=== PATIENT | female | born 1965 | race Caucasian/White ===

== ENCOUNTER 2020-04-20 12:00 | Emergency (ER) | payer OTHER ==
[2020-04-20 12:07] VITALS: BP 138/78; PULSE 55
[2020-04-20] MEDS ORDERED: Ketorolac 30 MG/ML SDV IVPUSH ONE (12:43)
--- NOTE | 2020-04-20 12:47 | EDM.PDOC ---
ED HPI GENERAL MEDICAL PROBLEM - General Chief Complaint: Flank Pain Stated Complaint: [facility]IA [facility] Time Seen by Provider: 04/20/20 12:30 Source of Information: Reports: Patient, EMS History Limitations: Reports: No Limitations - History of Present Illness INITIAL COMMENTS - FREE TEXT/NARRATIVE: 54-year-old female, generally healthy who had been feeling fine but 4 hours ago she developed some loose stools and then some intense pain in the left lower quadrant and left flank. It is been persistent for the past couple hours so she called an ambulance, pain was "10 out of 10". No fevers or chills, she also developed nausea and vomiting. In route she got 150 mcg of fentanyl which helped but she is still having persistent left flank pain. She has survived breast cancer, and has had several C-sections. She has had a hysterectomy and bilateral oophorectomy due to the metastatic breast cancer. She is not currently on chemotherapy. No fevers or chills. Onset: Sudden Duration: Hour(s): (4 hours ago) Location: Reports: Other (Left flank and left lower abdomen) Associated Symptoms: Reports: Nausea/Vomiting - Related Data Allergies Allergy/AdvReac Type Severity Reaction Status Date / Time No Known Allergies Allergy Verified 04/20/20 12:18 Home Meds: Home Meds Aspirin [Halfprin] 81 mg PO DAILY 05/21/15 [History] Levothyroxine Sodium [Synthroid] 88 mcg PO DAILY 05/21/15 [History] Zolpidem [Ambien] 5 mg pe PO ASDIRECTED PRN 05/21/15 [History] atorvaSTATin [Lipitor] 10 mg PO BEDTIME 05/21/15 [History] metFORMIN HCl [Metformin HCl] 1,000 mg PO DAILY 05/21/15 [History] Past Medical History HEENT History: Reports: Impaired Vision Cardiovascular History: Reports: High Cholesterol Respiratory History: Reports: Sleep Apnea Other Respiratory History: cpap Gastrointestinal History: Reports: None Genitourinary History: Reports: None [employer] History: Reports: Psychiatric History: Reports: Anxiety Endocrine/Metabolic History: Reports: Diabetes, Type II, Hypothyroidism Oncologic (Cancer) History: Reports: Breast - Past Surgical History Head Surgeries/Procedures: Reports: None HEENT Surgical History: Reports: None Cardiovascular Surgical History: Reports: None Respiratory Surgical History: Reports: None GI Surgical History: Reports: Cholecystectomy Female Surgical History: Reports: Section, Hysterectomy, Mastectomy Other Female Surgeries/Procedures: bilat mastectomy reconstuction surgery Endocrine Surgical History: Reports: None Neurological Surgical History: Reports: None Oncologic Surgical History: Reports: Mastectomy Dermatological Surgical History: Reports: None Social & Family History - Tobacco Use Smoking Status *Q: Never Smoker Second Hand Smoke Exposure: No - Caffeine Use Caffeine Use: Reports: Tea - Recreational Drug Use Recreational Drug Use: No ED ROS GENERAL - Review of Systems Review Of Systems: See Below Constitutional: Denies: Fever, Chills Respiratory: Denies: Shortness of Breath Cardiovascular: Denies: Chest Pain GI/Abdominal: Reports: Abdominal Pain, Nausea, Vomiting : Reports: Flank Pain (Left side). Denies: Dysuria, Frequency, Urgency Musculoskeletal: Reports: Back Pain Skin: Reports: Pallor, Diaphoresis Neurological: Denies: Confusion, Dizziness, Headache, Paresthesia Psychiatric: Reports: No Symptoms ED EXAM, GENERAL - Physical Exam Exam: See Below Exam Limited By: No Limitations General Appearance: Alert, Anxious, Mild Distress, Other (Still looks fairly uncomfortable) Eye Exam: Bilateral Eye: Normal Inspection Respiratory/Chest: No Respiratory Distress, Lungs Clear Cardiovascular: Regular Rate, Rhythm GI/Abdominal: Normal Bowel Sounds, Soft, Non-Tender Extremities: Normal Inspection. No: Pedal Edema Neurological: Alert, Oriented Psychiatric: Anxious Skin Exam: Warm, Diaphoretic (Diffuse mild diaphoresis) Course - Vital Signs Last Recorded V/S: Last Vital Signs Temp 97.3 F 04/20/20 12:24 Pulse 55 L 04/20/20 12:24 Resp 16 04/20/20 12:24 BP 138/78 04/20/20 12:24 Pulse Ox 99 04/20/20 12:24 - Orders/Labs/Meds Meds: Medications Discontinued Medications Generic Name Dose Route Start Last Admin Trade Name Freq PRN Reason Stop Dose Admin Ketorolac Tromethamine 30 mg 04/20/20 12:43 04/20/20 12:57 Toradol IVPUSH 04/20/20 12:44 30 mg ONETIME ONE Administration Tamsulosin HCl 0.4 mg 04/20/20 13:26 04/20/20 13:31 Flomax PO 04/20/20 13:27 0.4 mg ONETIME ONE Administration - Re-Assessments/Exams Free Text/Narrative Re-Assessment/Exam: 04/20/20 12:46 Patient will be given 30 mg of IV Toradol then sent back for an abdomen pelvis CT to rule out left ureteral stone. 04/20/20 15:00 CT confirmed a right ureteral stone almost care home down the ureter. Toradol gave her excellent pain relief. She will be discharged with extra Toradol and hydrocodone for pain control and will recheck in 2 to 3 days if not improving satisfactorily. 04/20/20 15:06 Patient remained almost asymptomatic until discharge. Departure - Departure Time of Disposition: 15:20 Disposition: Home, Self-Care 01 Clinical Impression: Ureteric colic, Left nephrolithiasis - Discharge Information Instructions: Kidney Stones, [id number] Referrals: PCP,None [Primary Care Provider] - Forms: ED Department Discharge Care Plan Goals: Stay hydrated, take 1 ketorolac every 6 hours unless pain resolves completely. Use stronger pain medications as prescribed for breakthrough pain, and recheck in 3 to 4 days if not improving satisfactorily. Return sooner if worsening despite treatment. Sepsis Event Note - Evaluation Sepsis Screening Result: No Definite Risk - Focused Exam Vital Signs: Vital Signs Temp Pulse Resp BP Pulse Ox 04/20/20 12:24 97.3 F 55 L 16 138/78 99 04/20/20 12:06 97.3 F 55 L 16 138/78 99 Date Exam was Performed: 04/20/20 Time Exam was Performed: 15:08
--- NOTE | 2020-04-20 13:20 | CT ---
Abdomen Pelvis wo Cont CLINICAL HISTORY: Left flank pain COMPARISON: None. TECHNIQUE: Axial tomographic images are obtained from the dome of the diaphragm to the pubic symphysis without IV contrast enhancement. No oral contrast was used. Auto dosage reduction and iterative reconstruction techniques employed. FINDINGS: The lung bases are clear as seen. The liver shows some diffuse fatty infiltration. The dome is off the image margin. The gallbladder has been removed. The spleen has a normal size and shape. The pancreas contains a 10 x 11 mm low-attenuation focus in the lower portion of the pancreatic head. There are smaller low-attenuation foci in the upper portion of the head. This is contiguous with the descending duodenum. There is 11 x 13 mm well-circumscribed the low-attenuation nodule on the left adrenal gland. This is likely a benign adenoma. The left kidney is hydronephrotic. There is some stranding in the perinephric fat. Extrarenal pelvis and proximal ureter are dilated. In the proximal ureter there is a 4 x 7 mm obstructing ureteral calculus. The mid to distal ureter has a normal course and contour to the bladder. There are 2 punctate stones in the lower pole collecting system and the left kidney. Right kidney has a normal appearance. The right ureter have has a normal course and caliber. Bladder has a normal contour. The aorta has a normal contour. There is no suspicious retroperitoneal adenopathy. Small intestinal configuration is nonacute. The appendix has a normal contour. Abdominal pelvic fat planes are well demarcated. IMPRESSION: 4 x 7 mm obstructing left proximal ureteral calculus with hydronephrosis 2 tiny renal calculi in the lower pole left kidney Multiple low-attenuation foci in the pancreatic head needs further investigation. These may represent pancreatic cyst or cystic neoplasm. Dedicated pancreatic MRI should be considered.
[2020-04-20] MEDS ORDERED: Tamsulosin 0.4 MG Cap.ER PO ONE (13:26)
== END 2020-04-20 15:19 | disposition home or self-care (01) ==
LOC: JP.ED 12:00
DX: N13.2 Hydronephrosis with renal and ureteral calculous obstruction (principal); E78.00 Pure hypercholesterolemia, unspecified; E11.9 Type 2 diabetes mellitus without complications; E03.9 Hypothyroidism, unspecified; Z79.82 Long term (current) use of aspirin; Z79.899 Other long term (current) drug therapy; Z79.84 Long term (current) use of oral hypoglycemic drugs
CPT/HCPCS: 74176; 96374; 99284; A9270; J1885